=== PATIENT | female | born 1970 | race Caucasian/White ===

== ENCOUNTER → 2021-02-12 14:06 | Outpatient (BNVA) | payer MEDICAID, SELFPAY | PROVIDERS: Family Provider Nurse Practitioner; PCP Nurse Practitioner; Visit Provider Family Medicine | DX: R30.0 Dysuria (principal); N30.00 Acute cystitis without hematuria | CPT/HCPCS: 81003 ==

== ENCOUNTER 2021-09-02 14:47 | Emergency (ER) | payer MEDICAID, SELFPAY ==
[2021-09-02 14:48] VITALS: BP 142/75; PULSE 81; RESP 15; TEMP 37.1; O2SAT 97; BMI 18.3
--- NOTE | 2021-09-02 15:09 | CTR_ITS ---
PROCEDURE INFORMATION: Exam: CT Head Without And With Contrast Exam date and time: 09/02/2021 3:09 PM Age: 50 years old Clinical indication: Pain; Dizziness; Headache; Additional info: Eval for mass TECHNIQUE: Imaging protocol: Computed tomography of the head without and with intravenous contrast. Radiation optimization: All CT scans at this facility use at least one of these dose optimization techniques: automated exposure control; mA and/or kV adjustment per patient size (includes targeted exams where dose is matched to clinical indication); or iterative reconstruction. Contrast material: OMNI 300; Contrast volume: 70 ml; Contrast route: INTRAVENOUS (IV); COMPARISON: No relevant prior studies available. RADIATION DOSE METRICS: Total DLP (mGy-cm): 897.91 FINDINGS: Brain: Normal. No hemorrhage. Unremarkable white matter. No mass effect. Cerebral ventricles: No ventriculomegaly. Paranasal sinuses: Visualized sinuses are unremarkable. No fluid levels. Mastoid air cells: Visualized mastoid air cells are well aerated. Bones/joints: Unremarkable. No acute fracture. Soft tissues: Unremarkable. CT/CT head wo/w con [id number] IMPRESSION: Negative for intracranial hemorrhage, mass effect or abnormal contrast enhancement Radiation Dose CTDIVOL = (mGy): DLP = 897.91 (mGy-cm)
[2021-09-02 15:17] LABS: Basophils % 0.4 %; Eosinophils # 0.1 10^3/uL (0.0-0.8); Eosinophils % 1.7 %; Hemoglobin 13.6 g/dL (11.5-15.3); Lymphocytes # 1.9 10^3/uL (0.8-4.8); Lymphocytes % 40.4 %; Mean Corpuscular Hemoglobin 32.5 pg (28.0-34.0); Mean Corpuscular Volume 95.7 fl (81-99); Mean Platelet Volume 9.8 fL (7.4-10.4); Monocytes # 0.5 10^3/uL (0.2-0.9); Monocytes % 11.2 %; Neutrophils # 2.13 10^3/uL (1.8-7.7); Neutrophils % 46.1 %; Nucleated Red Blood Cells % 0 %; Platelet Count 182 10^3/cmm (130-400); Red Blood Count 4.18 10^6/uL (4.1-5.3); Red Cell Distribution Width 11.9 % (12.1-15.1); White Blood Count 4.6 10^3/uL (4.0-10.0)
[2021-09-02] MEDS: acetaminophen 500 mg Tablet 1000 MG PO (15:34)
[2021-09-02] MEDS: diphenhydrAMINE 50 mg/mL SDV 1mL IVP (15:35)
[2021-09-02] MEDS: ketorolac 30 mg/mL INJ 15 MG IVP (15:35)
[2021-09-02] MEDS: sodium chloride 0.9% 1,000 ML 999 ML IV (15:35)
[2021-09-02] MEDS: metoclopramide 5 mg/mL SDV 2 mL IVP (15:35)
[2021-09-02 16:10] LABS: Alanine Aminotransferase 110 U/L (0-33); Albumin Level 4.1 g/dL (3.5-5.2); Alkaline Phosphatase 105 IU/L (35-105); Anion Gap 14.2 (5-19); Aspartate Amino Transferase 71 U/L (0-32); Blood Urea Nitrogen 15 mg/dL (6-20); Calcium 8.9 mg/dL (8.5-10.5); Carbon Dioxide 26 mmol/L (22-29); Chloride 105 mmol/L (98-107); Globulin 2.8 g/dL (1.3-4.6); Glomerular Filtration Rate 167.6 mL/min (90-130); Glucose 93 mg/dL (65-115); Lipase 29 U/L (13-60); Magnesium 1.9 mg/dL (1.7-2.3); Osmolality Calculated 293 mOsm/kg (285-295); Potassium 4.2 mmol/L (3.5-5.1); Sodium 141 mmol/L (136-145); Total Bilirubin 0.4 mg/dL (0.15-1.2); Total Protein 6.9 g/dL (6.6-8.7)
--- NOTE | 2021-09-02 16:16 | ED_ITS ---
HPI - General Adult General: Chief complaint: Headache Stated complaint: HEADACHE; WEAKNESS Time Seen by Provider: 09/02/21 14:48 History of Present Illness: HPI narrative: HPI: [50]yo patient w hx of chronic headache without formal diagnosis presenting to the ED with new onset of headache x 1 day. Describes the headache as pulsatile or cramping behind the R eye. Patient reports headache was gradual in onset over 3 hrs and has since been intermittent unremitting and worsening. +Headache associated with +N/+V, photophobia, generalized weakness, and inability to concentrate on tasks. Denies fever/chill, hx of immunocompromise, HIV, or transplant. The patient denies any focal neurological weakness, vision blindness, diplopia, or eye pain, hoarseness of voice or facial weakness. The patient has had decreased PO intake since the onset of headache symptoms. No family hx of subarachnoid hemorrhage. Denies recent trauma to the head. Pain is unrelieved with OTC medication, ibuprofen or Tylenol. No formal workup. Fam hx of aneurysm in the past. No complaints of chest pain, shortness of breath, palpitations, light- headedness/vertigo/syncope, abdominal pain, or complaints today. Onset: 1 days ago Duration: ongoing Location: home Severity: moderate Review of Systems Narrative: Constitutional: No fever, no chills. HEENT: +blurriness of vision CV: No chest pain, no palpitations PULM: No productive cough, no dyspnea. GI: No abdominal pain, +N/+V/-D. : No Dysuria MSKEL: No muscle pain SKIN: No new rashes, no lesions. NEURO: + headache, no focal weakness. HEME: No visible bruises PSYCH: Normal mood PFSH ED PFSH: Medical History (Updated 09/02/21 @ 16:16 by Indio Kumar MD) Psychiatric care Family History Other Cancer Diabetes Hypertension Social History Smoking and tobacco status: current every day smoker cigarettes and e- cigarettes E-Cigarette Details: vaporizer device E-cig/vape details: currently Marital status: / Sexually active: Yes Physical Exam Narrative: EXAM NARRATIVE: Head: Atraumatic Eyes: PERRL, conjunctiva without injection, eyes tracking ENT: Mucous membrane moist NECK: Supple without lymphadenopathy, no nuchal rigidity LUNGS: LCTAB CV: RRR ABDOMEN: Soft, nontender in all quadrants, no guarding or rebound tenderness, no CVA or flank tenderness bilaterally EXTREMITY: Normal ROM SKIN: No rash or erythema through the whole body NEURO: Mental status: A/Ox3 CN II-XII tested and intact. Sensation intact to sharp/dull differentiation in all extremities. Motor: Normal tone and bulk. No abnormal movements appreciated. No pronator drift. Strength tested and 5/5 in bilateral wrist flexion/extension, elbow flexion/extension, shoulder abduction, straight leg raise, knee flexion/extension, ankle dorsiflexion/plantarflexion. Patient ambulates with a steady gait. Coordination: Finger to nose and heel to ny testing intact bilaterally. PSYCH: Cooperative mood and affect Course Vital Signs: Vital signs: Vital Signs Temperature 98.7 F 09/02/21 14:48 Pulse Rate 80 09/02/21 18:58 Respiratory Rate 16 09/02/21 18:58 Blood Pressure 123/79 09/02/21 18:58 Pulse Oximetry 98 09/02/21 18:58 MDM - General Adult MDM Narrative: Medical decision making narrative: [50] yo w/ hx of headache w/o formal evaluation presents with moderate to severe headache. Hx of aneurysm in the family. CT/CT head w/ contrast negative for any aneurysm. No signs of bleeding. -Fever, -Nausea/-Vomiting, -Neck pain. -Trauma. Afebrile, HDS stable. No focal neurological symptoms. Neuro exam is non-focal. Pt is nontoxic. Based on history and normal neurological exam I do not suspect for intracranial tumor, intracranial bleed, subdural/epidural hematoma, meningitis or intracranial abscess, encephalopathy or encephalitis, temporal arteritis, glaucoma, CO poisoning. Presentation most likely benign headache. Intervention today: IVF, Reglan 5mg, Benadryl 50mg IV, Toradol 30mg IV, and Magnesium Sulfate 2g IV, and Prednisone 50mg PO [6:33pm] On reassessment, the patient reports the headache is symptomatically improved with treatment. Neuro exam intact. Patient is able to ambulate and tolerate PO in the ED. Rx: Tylenol 500mg Q6Hrs x 5 days PRN headache Disposition: Discharge home with strict return precautions and instructions for prompt primary care follow up. Given referral for Neurology should any headache recur. Given return instructions for any focal deficit, fever/chill, neck pain or any new or concerning symptoms. Lab Data: Labs: Lab Results 09/02/21 09/02/21 15:10 15:10 WBC 4.6 10^3/uL 10^3/ uL (4.0-10.0) RBC 4.18 10^6/uL 10^6 /uL (4.1-5.3) Hgb 13.6 g/dL g/dL (11.5-15.3) Hct 40.0 % % (37.0-47.0) MCV 95.7 fl fl (81-99) MCH 32.5 pg pg (28.0-34.0) MCHC 34.0 g/dL g/dL (30.0-36.0) RDW 11.9 % L % (12.1-15.1) Plt Count 182 10^3/cmm 10^3 /cmm (130-400) MPV 9.8 fL fL (7.4-10.4) Neut % (Auto) 46.1 % % Lymph % (Auto) 40.4 % % [place] % (Auto) 11.2 % % Eos % (Auto) 1.7 % % Baso % (Auto) 0.4 % % Neut # (Auto) 2.13 10^3/uL 10^3 /uL (1.8-7.7) Lymph # (Auto) 1.9 10^3/uL 10^3/ uL (0.8-4.8) [place] # (Auto) 0.5 10^3/uL 10^3/ uL (0.2-0.9) Eos # (Auto) 0.1 10^3/uL 10^3/ uL (0.0-0.8) Baso # (Auto) 0.0 10^3/uL 10^3/ uL (0.0-0.1) Nucleated RBC % (a uto) 0 % % Nucleated RBCs # 0.0 /100WBC /100W BC Sodium 141 mmol/L mmol/L (136-145) Potassium 4.2 mmol/L mmol/L (3.5-5.1) Chloride 105 mmol/L mmol/L (98-107) Carbon Dioxide 26 mmol/L mmol/L (22-29) Anion Gap 14.2 (5-19) BUN 15 mg/dL mg/dL (6-20) Creatinine 0.4 mg/dL L mg/dL (0.5-0.9) GFR Calculation 167.6 mL/min H mL /min (90-130) Glucose 93 mg/dL mg/dL (65-115) Calculated Osmolal ity 293 mOsm/kg mOsm/ kg (285-295) Calcium 8.9 mg/dL mg/dL (8.5-10.5) Magnesium 1.9 mg/dL mg/dL (1.7-2.3) Total Bilirubin 0.4 mg/dL mg/dL (0.15-1.2) AST 71 U/L H U/L (0-32) ALT 110 U/L H U/L (0-33) Alkaline Phosphata se 105 IU/L IU/L (35-105) Total Protein 6.9 g/dL g/dL (6.6-8.7) Albumin 4.1 g/dL g/dL (3.5-5.2) Globulin 2.8 g/dL g/dL (1.3-4.6) Lipase 29 U/L U/L (13-60) Imaging Data^: Other Imaging: Radiologist's impression: [address] [id number] Scan ReportSigned Patient: Zhao Moralez #: [id number]: 1970Acct#:[id number]/Sex: 50 / FADM Date: 09/02/21Loc: ERRoom/Bed:Attending Dr: Ordering Provider/Ordering MD: Indio Kumar MD Date of Service: 09/02/21 Procedure(s): CT head wo/w con [id number] Accession Number(s): [id number] Report Number: [id number] PROCEDURE INFORMATION: Exam: CT Head Without And With Contrast Exam date and time: 09/02/2021 3:09 PM Age: 50 years old Clinical indication: Pain; Dizziness; Headache; Additional info: Eval for mass TECHNIQUE: Imaging protocol: Computed tomography of the head without and with intravenous contrast. Radiation optimization: All CT scans at this facility use at least one of these dose optimization techniques: automated exposure control; mA and/or kV adjustment per patient size (includes targeted exams where dose is matched to clinical indication); or iterative reconstruction. Contrast material: OMNI 300; Contrast volume: 70 ml; Contrast route: INTRAVENOUS (IV); COMPARISON: No relevant prior studies available. RADIATION DOSE METRICS: Total DLP (mGy-cm): 897.91 FINDINGS: Brain: Normal. No hemorrhage. Unremarkable white matter. No mass effect. Cerebral ventricles: No ventriculomegaly. Paranasal sinuses: Visualized sinuses are unremarkable. No fluid levels. Mastoid air cells: Visualized mastoid air cells are well aerated. Bones/joints: Unremarkable. No acute fracture. Soft tissues: Unremarkable. CT/CT head wo/w con [id number] IMPRESSION: Negative for intracranial hemorrhage, mass effect or abnormal contrast enhancement Radiation Dose CTDIVOL = (mGy): DLP = 897.91 (mGy-cm) Dictated By:Villa Moody MDSigned By:Villa Moody MDSigned Date/Time:09/02/21 1655DD/ 1509 Discharge Plan Discharge Patient Disposition: Home Clinical Impression: Headache Condition: Stable Prescriptions: New acetaminophen 500 mg tablet 500 mg PO Q6H PRN (Reason: pain) 5 Days Qty: 20 RF: 0 No Action venlafaxine 37.5 mg capsule,extended release 24hr 37.5 mg PO DAILY RF: 0 Discharge Orders: Discharge ED (Routine); Ordered 09/02/21 Ordered By: Indio Kumar Referrals: Ricardo Driscoll, [facility] [Primary Care Provider] - Discharge Diet: Advance as tolerated Discharge Activity: Resume usual activity Patient Instructions: Acute Headache (ED) Activity Restrictions/Additional Instructions: Come back to the emergency room if your headache worsens, have any fever chills, any new or concerning complaints. Coding Level of Care Code ED Patient Financial Services Coordinator for Shimon Carrillo
[2021-09-02] MEDS: iohexol 300 mg/mL 100 mL Btl IV (16:22)
[2021-09-02 18:58] VITALS: BP 123/79; PULSE 80; RESP 16; O2SAT 98
== END 2021-09-02 19:00 | disposition home or self-care (01) ==
PROVIDERS: Emergency Provider Emergency Medicine; PCP Nurse Practitioner
DX: R51.9 Headache, unspecified (principal); F17.290 Nicotine dependence, other tobacco product, uncomplicated
CPT/HCPCS: 70470; 80053; 83690; 83735; 85025; 96361; 96374; 96375; 99283; J1200; J1885; J2765; J7030; Q9967

== ENCOUNTER 2021-09-21 12:30 | Outpatient (CLI) | payer MEDICAID, SELFPAY ==
[2021-09-21 12:30] VITALS: BP 113/73; PULSE 71; RESP 18; TEMP 36.3; O2SAT 95; BMI 19.2
[2021-09-21 13:24] VITALS: BMI 19.2
== END 2021-09-21 12:31 | disposition home or self-care (01) ==
LOC: OPS 12:32
PROVIDERS: PCP Nurse Practitioner; Visit Provider Family Medicine
DX: U07.1 COVID-19 (principal)
CPT/HCPCS: 96365

== ENCOUNTER 2021-09-27 10:26 | Outpatient (CLI) | payer MEDICAID, SELFPAY ==
--- NOTE | 2021-09-27 10:36 | XR_ITS ---
WS: [id number] Exam: XR chest 2V* [id number] Date/Time of Exam: 09/27/2021 10:36 AM Reason For Exam: R05.9 - Cough, unspecified Comparison 01/18/2019. The lungs are hyperinflated. Small groundglass infiltrates seen in the lower right lung zone. No pleu ral effusions. No pneumothorax. The cardiomediastinal silhouette is normal in appearance. Recommendations: Follow-up PA and lateral chest x-ray in 5-7 days might be considered for ongoing chapo luation. XR/XR chest 2V* [id number] IMPRESSION: 1. Small groundglass infiltrate in the lower right lung zone suspicious for dev eloping pneumonia. 2. Pulmonary hyperinflation suggesting COPD.
[2021-09-27 10:59] LABS: Basophils % 0.6 %; Eosinophils # 0.1 10^3/uL (0.0-0.8); Eosinophils % 2.4 %; Hematocrit 40.3 % (37.0-47.0); Hemoglobin 13.9 g/dL (11.5-15.3); Lymphocytes # 2.4 10^3/uL (0.8-4.8); Lymphocytes % 51.7 %; Mean Corpuscular HGB Conc 34.5 g/dL (30.0-36.0); Mean Corpuscular Hemoglobin 31.9 pg (28.0-34.0); Mean Corpuscular Volume 92.4 fl (81-99); Mean Platelet Volume 10.1 fL (7.4-10.4); Monocytes # 0.5 10^3/uL (0.2-0.9); Monocytes % 9.8 %; Neutrophils # 1.64 10^3/uL (1.8-7.7); Neutrophils % 35.1 %; Nucleated Red Blood Cells % 0 %; Platelet Count 176 10^3/cmm (130-400); Red Blood Count 4.36 10^6/uL (4.1-5.3); Red Cell Distribution Width 11.5 % (12.1-15.1); White Blood Count 4.7 10^3/uL (4.0-10.0)
== END 2021-09-27 10:27 | disposition home or self-care (01) ==
PROVIDERS: PCP Nurse Practitioner; Visit Provider Nurse Practitioner
DX: R05.9 Cough, unspecified (principal); R91.8 Other nonspecific abnormal finding of lung field
CPT/HCPCS: 36415; 71046; 85025

== ENCOUNTER → 2021-10-09 15:52 | Outpatient (BNVA) | payer MEDICAID, SELFPAY | PROVIDERS: PCP Nurse Practitioner; Visit Provider Internal Medicine | DX: R76.8 Other specified abnormal immunological findings in serum (principal); B19.20 Unspecified viral hepatitis C without hepatic coma; B18.2 Chronic viral hepatitis C; Z20.822 Contact with and (suspected) exposure to COVID-19; Z12.11 Encounter for screening for malignant neoplasm of colon; Z71.9 Counseling, unspecified | CPT/HCPCS: 80053; 82105; 87522; 87902 ==

== ENCOUNTER 2021-10-23 16:03 | Outpatient (CLI) | payer MEDICAID, SELFPAY ==
--- NOTE | 2021-10-23 16:29 | XRR_ITS ---
PROCEDURE INFORMATION: Exam: XR Lumbosacral Spine Exam date and time: 10/23/2021 4:29 PM Age: 51 years old Clinical indication: Pain; Dorslagia; Prior surgery; Surgery type: Appy; Additional info: M54.9 - dorsalgia, unspecified TECHNIQUE: Imaging protocol: XR of the lumbosacral spine. Views: 2 or 3 views. COMPARISON: No relevant prior studies available. FINDINGS: Bones/joints: No fracture or other acute abnormalities are seen in the lumbar spine. Chronic degenerative changes are present with disc space narrowing especially at L4-L5. There is narrowing sclerosis and hypertrophy of the facet joints. There is grade 1-2 spondylolisthesis at the L4-L5 level. Soft tissues: Unremarkable. XR/XR lumbar spine 2-3V* [id number] IMPRESSION: 1. No acute abnormality. 2. Chronic degenerative disease predominantly at the L4-L5 disc and lower lumbar facets. 3. There is grade 1-2 spondylolisthesis at L4-L5.
--- NOTE | 2021-10-23 16:29 | XRR_ITS ---
PROCEDURE INFORMATION: Exam: XR Thoracic Spine Exam date and time: 10/23/2021 4:29 PM Age: 51 years old Clinical indication: Pain; Other: Dorsalgia; Prior surgery; Surgery type: Appy; Additional info: M54.9 - dorsalgia, unspecified TECHNIQUE: Imaging protocol: XR of the thoracic spine. Views: 3 views. COMPARISON: CR XR chest 2V* [id number] 09/27/2021 10:41 AM FINDINGS: Bones/joints: There is mild lumbar scoliosis. No fracture or other acute abnormalities are seen. Mild degenerative changes are present throughout the thoracic spine with disc space narrowing and small osteophytes. Soft tissues: Unremarkable. XR/XR thoracic spine 3V* [id number] IMPRESSION: Mild scoliosis and DJD. No acute abnormality.
== END 2021-10-23 16:04 | disposition home or self-care (01) ==
PROVIDERS: PCP Nurse Practitioner; Visit Provider Nurse Practitioner
DX: M41.84 Other forms of scoliosis, thoracic region (principal); M47.814 Spondylosis without myelopathy or radiculopathy, thoracic region; M43.16 Spondylolisthesis, lumbar region; M51.36 Other intervertebral disc degeneration, lumbar region
CPT/HCPCS: 72072; 72100; 87635

== ENCOUNTER 2021-10-29 06:48 | Day surgery (SDC) | payer MEDICAID, SELFPAY ==
[2021-10-19 13:54] VITALS: BMI 19.2
--- NOTE | 2021-10-22 07:24 | W.PM.OPSFHP ---
Same Day Surgery H&P Indication for Procedure/HPI DATE OF PROCEDURE: October 22, 2021 CHIEF COMPLAINT/INDICATIONFOR SURGICAL PROCEDURE: Screening PREOP DIAGNOSIS: Screening PLANNED PROCEDRUE: Operation Date: 10/22/21 07:00 Proposed Procedures p Colonoscopy 07929 Z12.11(Not Applicable) - Matt Hall MD Medications/Allergies* Allergies/Adverse Reactions Allergy/AdvReac Type Severity Reaction Status Date / Time No Known Allergies Allergy Verified 10/19/21 13:42 Pertinent History/Comorbid Conditions* Medical History (Updated 10/10/21 @ 13:46 by LUCIA Simmons) Depression Hepatitis C Psychiatric care Surgical History (Updated 09/26/21 @ 14:06 by LUCIA Simmons) History of appendectomy Family History (Updated 02/12/21 @ 13:36 by Theresa Shen LPN) Diabetes Cancer Hypertension Social History Smoking and tobacco status: former smoker Lives independently: Yes Household members: family Housing: House Marital status: / Current occupational status: unemployed Sexually active: Yes Current gender identity: Female Pertinent Exam Findings alert, oriented x 3, clear to auscultation bilaterally, regular rate & rhythm, operative site marked and procedure specific exam findings Recommendations Surgery/Procedure today Coding Level of Care Code Acute Manager Grocery for Shimon Carrillo
--- NOTE | 2021-10-29 06:58 | ANES.PREANE2 ---
Pre-Anesthetic Assessment Pre-Anesthetic Assessment: Height/Weight: Height 1.57 m Weight 47.627 kg Preop Diagnosis: Screening Proposed Procedure: Operation Date: 10/29/21 08:00 Proposed Procedures p Colonoscopy 92100 Z12.11(Not Applicable) - Matt Hall MD Familial anesthetic complications: NOne Was Beta Tessy taken within 24 hours: N/A Was Clonidine taken within 24 hours: N/A Last intake: > 8 hrs Social: Social History: No alcohol and No tobacco Exam: Pre-Anes Outpt Exam: alert, oriented x 3, clear to auscultation bilaterally and regular rate & rhythm Airway: MP: 1 Dentition: Loose (mulitple ) Pulmonary: Pulmonary: COPD Comments: clearing throat since yesterday - phlegm Hepatic: Hepatic: Hepatitis (C) GI: GI: GERD Neuropsych: Neuropsych: Seizure (last one 2 years ago) Anesthetic Plan: ASA status: 2 Anesthesia: MAC Risk of > 500 ml blood loss (7ml/kg in children): No PFSH Anesthesia PFSH: Medical History Depression Hepatitis C Psychiatric care Surgical History History of appendectomy Family History Other Cancer Diabetes Hypertension Social History Smoking and tobacco status: former smoker Lives independently: Yes Household members: family Housing: House Marital status: / Current occupational status: unemployed Sexually active: Yes Current gender identity: Female Data Anesthesia Cardiac Studies: No Data to Display
[2021-10-29 07:11] VITALS: BP 106/71; PULSE 81; RESP 18; TEMP 36.5; O2SAT 98
--- NOTE | 2021-10-29 07:17 | W.PM.OPSFHP ---
Same Day Surgery H&P Indication for Procedure/HPI DATE OF PROCEDURE: October 29, 2021 CHIEF COMPLAINT/INDICATIONFOR SURGICAL PROCEDURE: Screening PREOP DIAGNOSIS: Screening PLANNED PROCEDRUE: Operation Date: 10/29/21 08:00 Proposed Procedures p Colonoscopy 46352 Z12.11(Not Applicable) - Matt Hall MD Medications/Allergies* Allergies/Adverse Reactions Allergy/AdvReac Type Severity Reaction Status Date / Time No Known Allergies Allergy Verified 10/29/21 07:16 Pertinent History/Comorbid Conditions* Medical History (Updated 10/10/21 @ 13:46 by LUCIA Simmons) Depression Hepatitis C Psychiatric care Surgical History (Updated 09/26/21 @ 14:06 by ULCIA Simmons) History of appendectomy Family History (Updated 02/12/21 @ 13:36 by Theresa Shen LPN) Diabetes Cancer Hypertension Social History Smoking and tobacco status: former smoker Lives independently: Yes Household members: family Housing: House Marital status: / Current occupational status: unemployed Sexually active: Yes Current gender identity: Female Pertinent Exam Findings alert, oriented x 3, clear to auscultation bilaterally, regular rate & rhythm, operative site marked and procedure specific exam findings Recommendations Surgery/Procedure today Coding Level of Care Code Acute Oyster Planter for Shimon Carrillo
[2021-10-29] MEDS: sodium chloride 0.9% 1,000 ML 30 ML IV (07:30)
[2021-10-29 08:38] VITALS: BP 102/59; PULSE 70; RESP 16; TEMP 36.2; O2SAT 97
[2021-10-29 08:44] VITALS: BP 91/69; PULSE 73; RESP 18; O2SAT 96
== END 2021-10-29 09:04 | disposition home or self-care (01) ==
PROVIDERS: PCP Nurse Practitioner; Visit Provider Internal Medicine
PROC: 0DJD8ZZ Inspection of Lower Intestinal Tract, Via Natural or Artificial Opening Endoscopic (ICD-10-PCS; CPT 45378; principal; 2021-10-29 08:00)
DX: Z12.11 Encounter for screening for malignant neoplasm of colon (principal); F32.9 Major depressive disorder, single episode, unspecified; Z86.19 Personal history of other infectious and parasitic diseases; Z82.49 Family history of ischemic heart disease and other diseases of the circulatory system; Z83.3 Family history of diabetes mellitus; Z87.891 Personal history of nicotine dependence; J44.9 Chronic obstructive pulmonary disease, unspecified
CPT/HCPCS: 45378; 96360; J2704; J7030

== ENCOUNTER → 2021-12-06 11:14 | Outpatient (BNVA) | payer MEDICAID, SELFPAY | PROVIDERS: PCP Nurse Practitioner; Visit Provider Nurse Practitioner Family | DX: R05.9 Cough, unspecified (principal) | CPT/HCPCS: 87635 ==

== ENCOUNTER → 2022-01-09 11:30 | Outpatient (BNVA) | payer MEDICAID, SELFPAY | PROVIDERS: PCP Nurse Practitioner; Visit Provider Nurse Practitioner Family | DX: R11.0 Nausea (principal) | CPT/HCPCS: 87086 ==

== ENCOUNTER → 2022-08-29 11:31 | Outpatient (BNVA) | payer MEDICAID, SELFPAY | PROVIDERS: PCP Nurse Practitioner; Visit Provider Nurse Practitioner | DX: F41.9 Anxiety disorder, unspecified (principal); B19.20 Unspecified viral hepatitis C without hepatic coma; G47.00 Insomnia, unspecified; K29.60 Other gastritis without bleeding; J44.9 Chronic obstructive pulmonary disease, unspecified; R05.9 Cough, unspecified; K59.01 Slow transit constipation; R31.9 Hematuria, unspecified | CPT/HCPCS: 74018; 80053; 81003 ==

== ENCOUNTER 2022-10-14 09:29 | Outpatient (CLI) | payer MEDICAID, SELFPAY ==
--- NOTE | 2022-10-14 09:30 | US_ITS ---
WS: [id number] ULTRASOUND ABDOMEN LIMITED CLINICAL INFORMATION: B19.20 - Unspecified viral hepatitis C without hepatic coma COMPARISON: None. FINDINGS: Liver Size: Normal. Craniocaudal length: 12.1 cm. Echogenicity: Coarse Surface nodularity: None. Mass (size and location): None. Bile ducts Intrahepatic ducts: Normal. Common bile duct diameter: 0.6 cm. Gallbladder Normal. Gallstones: None. Gallbladder sludge: None. Gallbladder wall thickening: None. Pericholecystic fluid: None. Sonographic Green sign: Absent. Pancreas Normal as visualized. Right kidney: Normal. Hydronephrosis: None. Size: 11.1 cm x 5.7 cm x 3.5 cm. Abdominal aorta and IVC Visualized portions are normal. Ascites: None. US/US liver [id number] IMPRESSION: 1. Coarse heterogeneous liver echotexture compatible with history of hepatitis C. 2. Normal gallbladder. 3. No hydronephrosis in RIGHT kidney. 4. No other acute findings.
== END 2022-10-14 09:30 | disposition home or self-care (01) ==
PROVIDERS: PCP Nurse Practitioner; Visit Provider Nurse Practitioner
DX: B19.20 Unspecified viral hepatitis C without hepatic coma (principal)
CPT/HCPCS: 76705

== ENCOUNTER → 2022-10-31 11:24 | Outpatient (BNVA) | payer MEDICAID, SELFPAY | PROVIDERS: PCP Nurse Practitioner; Visit Provider Student in an Organized Health Care Education/Training Program | DX: B19.20 Unspecified viral hepatitis C without hepatic coma (principal); K74.60 Unspecified cirrhosis of liver | CPT/HCPCS: 36415; 82977; 83615; 84450; 84460; 85610; 87522; 99203; 99205 ==

== ENCOUNTER 2023-02-03 15:56 | Outpatient (CLI) | payer MEDICAID, SELFPAY ==
[2023-02-05 22:44] LABS: HEP C RNA Viral Load Quant <1.18 NOT DETECTED Log IU/mL (NOT DETECTED); HEP C RNA Viral Load Quant <15 NOT DETECTED IU/mL (NOT DETECTED)
== END 2023-02-03 15:57 | disposition home or self-care (01) ==
LOC: LAB 15:58
PROVIDERS: PCP Nurse Practitioner; Visit Provider Student in an Organized Health Care Education/Training Program
DX: B19.20 Unspecified viral hepatitis C without hepatic coma (principal)
CPT/HCPCS: 36415; 87522

== ENCOUNTER → 2023-02-21 13:04 | Outpatient (BNVA) | payer MEDICAID, SELFPAY | PROVIDERS: PCP Nurse Practitioner; Visit Provider Orthopaedic Surgery | DX: M43.16 Spondylolisthesis, lumbar region (principal) | CPT/HCPCS: 72110; 99204 ==

== ENCOUNTER → 2023-02-27 14:27 | Outpatient (BNVA) | payer MEDICAID, SELFPAY | PROVIDERS: PCP Nurse Practitioner; Visit Provider Nurse Practitioner | DX: M54.50 Low back pain, unspecified (principal); M79.604 Pain in right leg; M79.605 Pain in left leg; B00.9 Herpesviral infection, unspecified; K59.01 Slow transit constipation; K29.60 Other gastritis without bleeding; J44.9 Chronic obstructive pulmonary disease, unspecified; F41.9 Anxiety disorder, unspecified | CPT/HCPCS: 80053; 84443; 85025 ==

== ENCOUNTER 2023-03-13 13:21 | Outpatient (CLI) | payer MEDICAID, SELFPAY ==
--- NOTE | 2023-03-13 13:00 | MR_ITS ---
WS: [id number] MRI LUMBAR SPINE NONCONTRAST TECHNIQUE: Sagittal T1, T2 and STIR imaging. Axial T1 and T2 imaging. CLINICAL INFORMATION: pain COMPARISON: None. FINDINGS: Mild to moderate central canal stenosis and cervical spinal electrical engineering manager imaging worse at C3-C4. Syrinx visu alized in the lower cervical and throughout the thoracic spine. Recommend further evaluation with cer vical and thoracic spine MRI. L1-L2: Mild annular bulging. Mild facet arthropathy. Spinal canal and foramen are patent. L2-L3: Mild annular bulging. Moderate facet arthropathy. Spinal canal and foramen are patent. L3-L4: No significant disc bulging. Moderate facet arthropathy. Spinal canal and foramen are patent. L4-L5: Grade 1 anterolisthesis L4 on L5. Severe central canal stenosis with facet arthropathy ligamen t flavum hypertrophy. Impingement traversing L5 nerve roots bilaterally. Moderate bilateral foraminal narrowing impinges the exiting L4 nerve roots. L5-S1: Annular bulging L5-S1 impinges the traversing S1 nerve root in the subarticular recess. Modera te to severe RIGHT foraminal narrowing impinges the RIGHT L5 nerve root. Moderate facet arthropathy. Mild LEFT foraminal narrowing. Visualized pelvic bony structures: Normal. Paravertebral soft tissues: Normal. MR/MR lumbar spine wo con* [id number] IMPRESSION: 1. Mild lumbar curve. No acute compression. 2. Grade 1 anterolisthesis L4 on L5 with Severe central canal stenosis. Imping ement traversing L5 nerve roots bilaterally. Advanced facet arthropathy. 3. Moderate bilateral foraminal narrowing L4-L5. 4. Moderate to severe RIGHT L5-S1 foraminal narrowing impinges the exiting RIG HT L5 nerve root. 5. Advanced facet arthropathy L4-L5 and L5-S1. 6. Annular bulging L5-S1 with slight impingement RIGHT subarticular recess and traversing RIGHT S1 nerve root. 7. Redundancy of the cauda equina nerve roots at the L4-L5 level. 8. Mild to moderate central canal stenosis cervical spinal electrical engineering manager imaging worse at C3-C4. Syrinx visualized in the lower cervical and throughout the thoracic spine. Recommend further evaluation with cervical and thoracic spine MRI.
== END 2023-03-13 13:22 | disposition home or self-care (01) ==
LOC: RAD 13:24
PROVIDERS: PCP Nurse Practitioner; Visit Provider Orthopaedic Surgery
DX: M43.8X6 Other specified deforming dorsopathies, lumbar region (principal); M47.816 Spondylosis without myelopathy or radiculopathy, lumbar region; M51.37 Other intervertebral disc degeneration, lumbosacral region; M48.02 Spinal stenosis, cervical region
CPT/HCPCS: 72148

== ENCOUNTER → 2023-03-27 14:33 | Outpatient (BNVA) | payer MEDICAID, SELFPAY | PROVIDERS: PCP Nurse Practitioner; Visit Provider Orthopaedic Surgery | DX: M54.50 Low back pain, unspecified (principal); M79.604 Pain in right leg; M79.605 Pain in left leg | CPT/HCPCS: 99214 ==

== ENCOUNTER 2023-03-28 12:13 | Emergency (ER) | payer MEDICAID, SELFPAY ==
[2023-03-28 13:00] VITALS: BP 154/92; PULSE 76; RESP 16; TEMP 36.7; O2SAT 98; BMI 25.2
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
== END 2023-03-28 16:41 | disposition home or self-care (01) ==
PROVIDERS: Emergency Provider Physician Assistant; PCP Nurse Practitioner
DX: S00.83XA Contusion of other part of head, initial encounter (principal); S39.012A Strain of muscle, fascia and tendon of lower back, initial encounter; S16.1XXA Strain of muscle, fascia and tendon at neck level, initial encounter; F17.210 Nicotine dependence, cigarettes, uncomplicated; F17.290 Nicotine dependence, other tobacco product, uncomplicated; Z86.19 Personal history of other infectious and parasitic diseases; V53.5XXA Driver of pick-up truck or van injured in collision with car, pick-up truck or van in traffic accident, initial encounter
CPT/HCPCS: 70450; 70486; 71101; 72072; 72100; 72125; 73030; 99285

== ENCOUNTER → 2023-04-24 09:09 | Outpatient (BNVA) | payer MEDICAID, SELFPAY | PROVIDERS: PCP Nurse Practitioner; Visit Provider Anesthesiology Pain Medicine | DX: M43.16 Spondylolisthesis, lumbar region (principal); M51.26 Other intervertebral disc displacement, lumbar region; M48.02 Spinal stenosis, cervical region; M48.061 Spinal stenosis, lumbar region without neurogenic claudication; M79.604 Pain in right leg; M79.605 Pain in left leg | CPT/HCPCS: 99205 ==

== ENCOUNTER → 2023-05-26 13:34 | Outpatient (BNVA) | payer MEDICAID, SELFPAY | PROVIDERS: PCP Nurse Practitioner; Visit Provider Anesthesiology Pain Medicine | DX: M54.16 Radiculopathy, lumbar region (principal); M79.604 Pain in right leg; M79.605 Pain in left leg | CPT/HCPCS: 64483; 64484; J1100; J3490 ==

== ENCOUNTER → 2023-08-25 09:48 | Outpatient (BNVA) | payer MEDICAID, SELFPAY | PROVIDERS: PCP Nurse Practitioner; Visit Provider Nurse Practitioner | DX: G47.00 Insomnia, unspecified (principal); M54.50 Low back pain, unspecified; M79.604 Pain in right leg; M79.605 Pain in left leg; F17.200 Nicotine dependence, unspecified, uncomplicated; Z13.6 Encounter for screening for cardiovascular disorders | CPT/HCPCS: 80053; 80061; 84443 ==

== ENCOUNTER → 2023-10-21 15:32 | Outpatient (BNVA) | payer MEDICAID, SELFPAY | PROVIDERS: PCP Nurse Practitioner; Visit Provider Nurse Practitioner | DX: N39.0 Urinary tract infection, site not specified (principal); M54.50 Low back pain, unspecified; M79.604 Pain in right leg; M79.605 Pain in left leg; F17.200 Nicotine dependence, unspecified, uncomplicated; G47.00 Insomnia, unspecified | CPT/HCPCS: 81000 ==

== ENCOUNTER → 2024-07-22 17:20 | Outpatient (BNVA) | payer MEDICAID, SELFPAY | PROVIDERS: PCP Nurse Practitioner; Visit Provider Emergency Medicine | DX: R05.9 Cough, unspecified (principal) | CPT/HCPCS: 87400; 87426 ==

== ENCOUNTER → 2024-12-13 14:07 | Outpatient (BNVA) | payer MEDICAID, SELFPAY | PROVIDERS: PCP Nurse Practitioner; Visit Provider Anesthesiology Pain Medicine | DX: M54.50 Low back pain, unspecified (principal); M79.604 Pain in right leg; M79.605 Pain in left leg | CPT/HCPCS: 99213 ==

== ENCOUNTER → 2024-12-15 15:24 | Outpatient (BNVA) | payer MEDICAID, SELFPAY | PROVIDERS: PCP Nurse Practitioner; Visit Provider Registered Nurse Neonatal Intensive Care | DX: J06.9 Acute upper respiratory infection, unspecified (principal) | CPT/HCPCS: 81000; 87400 ==

== ENCOUNTER → 2025-01-15 12:35 | Outpatient (BNVA) | payer MEDICAID, SELFPAY | PROVIDERS: PCP Nurse Practitioner; Visit Provider Family Medicine | DX: J40 Bronchitis, not specified as acute or chronic (principal) | CPT/HCPCS: 87400 ==

== ENCOUNTER → 2025-03-14 14:16 | Outpatient (BNVA) | payer MEDICAID, SELFPAY | PROVIDERS: PCP Nurse Practitioner; Visit Provider Anesthesiology Pain Medicine | DX: M54.50 Low back pain, unspecified (principal); M79.604 Pain in right leg; M79.605 Pain in left leg | CPT/HCPCS: 72110; 99214 ==

== ENCOUNTER 2025-04-11 12:13 | Outpatient (CLI) | payer MEDICAID, SELFPAY ==
--- NOTE | 2025-04-11 12:15 | MR_ITS ---
WS: [id number] MRI LUMBAR SPINE NONCONTRAST HISTORY: M54.16 - Radiculopathy, lumbar region COMPARISON: 03/13/2023 TECHNIQUE: Sagittal and axial multisequence imaging is submitted. Cervical degenerative disc disease and osteophytosis resulting in narrowing of the cervical canal. Disc protrusions also noted throughout the thoracic spine with increase in thoracic kyphosis. 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 Syrinx is noted throughout the thoracic spine. Similar extent of the syrinx as compared to the prior study from 2022. L4 anterolisthesis by 6.3 mm. Increase in lumbar lordosis. No acute fracture. L4-5 disc space is slightly narrowed and desiccated. L2 Schmorl's node. Conus terminates normally at L1-2 disc level. L1-L2: Mild annular disc bulging and facet arthritis. No stenosis. L2-L3: Bilateral facet and ligamentum flavum hypertrophy. Mild foraminal stenosis. L3-L4: Mild ligamentum flavum and facet arthritis. No stenosis. L4-L5: Severe central, subarticular recess and foraminal stenosis. Severe ligamentum flavum and facet joint arthritis. Anterolisthesis of L4 is contributing to the stenosis. There is significant disc contact on the L4 and L5 nerve roots. L5-S1: Mild annular disc bulge with a central disc protrusion. RIGHT foraminal disc protrusion completely effacing fat. There is disc contact on the S1 nerve roots in the subarticular recesses. Mild central stenosis and subarticular recess stenosis. Severe RIGHT foraminal stenosis and mild LEFT foraminal stenosis. Paravertebral soft tissues are normal. MR/MR lumbar spine wo con* [id number] IMPRESSION: 1. Grade 1 anterolisthesis of L4, unchanged. 2. L4-5: Severe central, subarticular recess and foraminal stenosis with disc contacting the L4 and L5 nerve roots. Similar to the prior study. 3. L5-S1: Disc contacts the S1 nerve roots in the subarticular recesses. Mild central and subarticular recess stenosis. Severe RIGHT foraminal stenosis due t o disc osteophyte disease. 4. Reidentified is a syrinx involving the lower cervical and thoracic cord as previously described. Does not appear to have progressed since 03/13/2023.
== END 2025-04-11 12:14 | disposition home or self-care (01) ==
LOC: RAD 12:13
PROVIDERS: PCP Nurse Practitioner; Visit Provider Anesthesiology Pain Medicine
DX: M54.16 Radiculopathy, lumbar region (principal); M43.16 Spondylolisthesis, lumbar region; M48.061 Spinal stenosis, lumbar region without neurogenic claudication; M48.07 Spinal stenosis, lumbosacral region; M25.78 Osteophyte, vertebrae; G95.0 Syringomyelia and syringobulbia; M50.30 Other cervical disc degeneration, unspecified cervical region; M51.24 Other intervertebral disc displacement, thoracic region; M40.294 Other kyphosis, thoracic region; M51.362 Other intervertebral disc degeneration, lumbar region with discogenic back pain and lower extremity pain; M51.379 Other intervertebral disc degeneration, lumbosacral region without mention of lumbar back pain or lower extremity pain; M51.46 Schmorl's nodes, lumbar region; M47.896 Other spondylosis, lumbar region; M24.28 Disorder of ligament, vertebrae; M51.27 Other intervertebral disc displacement, lumbosacral region
CPT/HCPCS: 72148